=== PATIENT | female | born 1990 | race Caucasian/White ===

== ENCOUNTER 2019-09-21 15:01 | Emergency (ER) | payer MEDICAID, OTHER ==
[2019-09-21 16:35] VITALS: BP 121/81; PULSE 91
[2019-09-21] MEDS ORDERED: Sodium Chloride 0.9% 10 ML Syringe FLUSH PRN (17:02)
--- NOTE | 2019-09-21 17:59 | CT ---
CT abdomen and pelvis Technique: Multiple axial sections were obtained from above the kidneys inferiorly through the pubic symphysis. Intravenous and oral contrast was not utilized. Findings: Skin thickening is seen within the anterior left pelvis with slight increased density within the adjacent subcutaneous fat. Findings presumably represent cellulitis. No fluid collections of abscess are seen. Visualized lung bases show nothing acute. Low density is noted next to the ligament teres fissure which I believe is most likely incidental. Spleen appears normal. Adrenal glands show no nodule. Pancreas shows no discrete abnormality. Nonobstructing stone is noted within the left kidney measuring 4.5 mm. No ureteral calcifications are seen. No bladder calculi are seen. Adrenal glands are unremarkable. Pancreas appears normal. Surgical clips are seen from prior cholecystectomy. Aorta shows no aneurysm. No retroperitoneal adenopathy or mesenteric abnormalities are seen. Anastomotic sutures are seen off the tip of the cecum. No pelvic mass or adenopathy is seen. No free fluid or inflammatory change is appreciated. Bone window settings were reviewed which shows no acute osseous finding. Impression: 1. Skin thickening and subcutaneous density within the left side of the lower anterior pelvis most likely representing cellulitis. 2. No focal fluid collection of abscess are seen. 3. Nonobstructing stone within left kidney. 4. Low density next to the ligamentum teres fissure within the liver believed to be incidental. 5. No additional abnormality is appreciated. Diagnostic code #3 This report was dictated in MDT
[2019-09-21] MEDS ORDERED: Ketorolac 30 MG/ML SDV IVPUSH ONE (18:08)
[2019-09-21] MEDS ORDERED: Sodium Chloride 0.9% 1,000 ML IV ONE (18:08)
[2019-09-21] MEDS ORDERED: Doxycycline 100 MG Cap PO ONE (18:59)
[2019-09-21] MEDS ORDERED: Potassium Chloride 20 MEQ Tab.ER PO ONE (18:59)
--- NOTE | 2019-09-21 19:12 | EDM.PDOC ---
ED HPI GENERAL MEDICAL PROBLEM - General Chief Complaint: Skin Complaint Stated Complaint: ABSCESS ON ABDOMEN Time Seen by Provider: 09/21/19 17:00 Source of Information: Reports: Patient History Limitations: Reports: No Limitations - History of Present Illness INITIAL COMMENTS - FREE TEXT/NARRATIVE: Patient is a 28-year-old female who presents to the emergency department with complaints of an area of painful, redness, and swelling to the skin of her right lower abdomen. States she first noticed it last night, however states it could have been there for longer than that as it is over her scar and she has limited sensation in that area. She states since yesterday it has doubled in size. She has a low-grade fever 99.5 at home. Temperature in triage was 97. She has not taken any antipyretics for the medication. States she does feel slightly nauseated but has had no vomiting or chills. Patient is type I diabetic and states that she just recently got insurance. She has been trying to stretch her insulin coverage, but now has insurance. She plans on setting up primary care in the clinic this week. Left Lower Abdomen Pain Score (Numeric/FACES): 2 - Related Data Allergies Allergy/AdvReac Type Severity Reaction Status Date / Time ondansetron HCl [From Zofran] Allergy Mild Swollen Verified 09/21/19 16:35 Eyes azithromycin [From Zithromax] Allergy Hives Verified 09/21/19 16:35 cephalexin [Cephalexin] Allergy Facial Verified 09/21/19 16:35 Swelling latex Allergy Rash Verified 09/21/19 16:35 Penicillins Allergy Cannot Verified 09/21/19 16:35 Remember tramadol Allergy Vomiting Verified 09/21/19 16:35 Home Meds: Home Meds Insulin Glarg,Human.Rec.Analog [LantUS] 27 unit SQ DAILY 09/03/13 [History] Gabapentin 100 mg PO DAILY 06/07/16 [History] Insulin Aspart [NovoLOG] 0 - 20 units SUBCUT WITHMEALSANDBED 02/23/17 [History] diphenhydrAMINE HCL [Allergy Medication] 0 mg PO ASDIRECTED PRN 09/21/19 [History] Past Medical History Genitourinary History: Reports: None 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: Neurological History: Reports: None Psychiatric History: Reports: None Endocrine/Metabolic History: Reports: Diabetes, Type I Hematologic History: Reports: None Immunologic History: Reports: None Oncologic (Cancer) History: Reports: None Dermatologic History: Reports: None - Infectious Disease History Infectious Disease History: Reports: None - Past Surgical History HEENT Surgical History: Reports: Adenoidectomy, Tonsillectomy GI Surgical History: Reports: Appendectomy, Cholecystectomy Female Surgical History: Reports: Section Neurological Surgical History: Reports: None Social & Family History - Family History Family Medical History: Noncontributory - Tobacco Use Smoking Status *Q: Current Every Day Smoker Years of Tobacco use: 10 Packs/Tins Daily: 0.5 - Caffeine Use Caffeine Use: Reports: Energy Drinks - Recreational Drug Use Recreational Drug Use: No ED ROS GENERAL - Review of Systems Review Of Systems: See Below Constitutional: Reports: Fever. Denies: Chills, Weakness, Diaphoresis, Decreased Appetite HEENT: Reports: No Symptoms Respiratory: Reports: No Symptoms Cardiovascular: Reports: No Symptoms Endocrine: Reports: No Symptoms GI/Abdominal: Reports: No Symptoms : Reports: No Symptoms. Denies: Dysuria Musculoskeletal: Reports: No Symptoms Skin: Reports: Other (Painful area of swelling and erythema to right lower abdomen) Neurological: Reports: No Symptoms Psychiatric: Reports: No Symptoms Hematologic/Lymphatic: Reports: No Symptoms Immunologic: Reports: No Symptoms ED EXAM, SKIN/RASH Exam: See Below Exam Limited By: No Limitations General Appearance: Alert, WD/WN, No Apparent Distress Respiratory/Chest: No Respiratory Distress, Lungs Clear, Normal Breath Sounds, No Accessory Muscle Use, Chest Non-Tender Cardiovascular: Normal Peripheral Pulses, Regular Rate, Rhythm, No Edema, No Gallop, No JVD, No Murmur, No Rub Neurological: Alert, Oriented, CN II-XII Intact, Normal Cognition, Normal Gait, Normal Reflexes, No Motor/Sensory Deficits Psychiatric: Normal Affect, Normal Mood Skin: Warm, Dry, Normal Color, Other (15 cm x 7 cm area of redness, warmth, and induration to the right lower abdomen. There is a 0.5 cm open area that has a scant amount of drainage from it. Wound cultures were obtained from this drainage. Area has been marked.) Course - Vital Signs Last Recorded V/S: Last Vital Signs Temp 97 F 09/21/19 16:34 Pulse 91 09/21/19 16:34 Resp 16 09/21/19 16:34 BP 121/81 09/21/19 16:34 Pulse Ox 99 09/21/19 16:34 - Orders/Labs/Meds Orders: Active Orders 24 hr Category Date Time Status Peripheral IV Care [RC] . DIRECTED Care 09/21/19 17:03 Active CULTURE BLOOD [BC] Stat Lab 09/21/19 17:35 Received Sodium Chloride 0.9% [Saline Flush] Med 09/21/19 17:02 Active 10 ml FLUSH ASDIRECTED PRN Peripheral IV Insertion Adult [OM.PC] Stat Oth 09/21/19 17:02 Ordered Medication Orders Sodium Chloride (Saline Flush) 10 ml FLUSH ASDIRECTED PRN PRN Reason: Keep Vein Open Last Admin: 09/21/19 18:22 Dose: 10 ml Documented by: JEROME Labs: Laboratory Tests 09/21/19 09/21/19 09/21/19 Range/Units 17:35 17:35 17:35 WBC 11.58 H (3.98-10.04) K/mm3 RBC 4.44 (3.98-5.22) M/mm3 Hgb 13.6 (11.2-15.7) gm/dl Hct 40.3 (34.1-44.9) % MCV 90.8 (79.4-94.8) fl MCH 30.6 (25.6-32.2) pg MCHC 33.7 (32.2-35.5) g/dl RDW Std Deviation 39.7 (36.4-46.3) fL Plt Count 235 (182-369) K/mm3 MPV 11.6 (9.4-12.3) fl Neut % (Auto) 68.2 (34.0-71.1) % Lymph % (Auto) 23.7 (19.3-51.7) % [place] % (Auto) 6.4 (4.7-12.5) % Eos % (Auto) 1.3 (0.7-5.8) Baso % (Auto) 0.3 (0.1-1.2) % Neut # (Auto) 7.89 H (1.56-6.13) K/mm3 Lymph # (Auto) 2.75 (1.18-3.74) K/mm3 [place] # (Auto) 0.74 H (0.24-0.36) K/mm3 Eos # (Auto) 0.15 (0.04-0.36) K/mm3 Baso # (Auto) 0.04 (0.01-0.08) K/mm3 Manual Slide Review Normal smear Sodium 140 (136-145) mEq/L Potassium 3.2 L (3.5-5.1) mEq/L Chloride 104 (98-107) mEq/L Carbon Dioxide 22 (21-32) mEq/L Anion Gap 17.2 H (5-15) BUN 7 (7-18) mg/dL Creatinine 0.7 (0.55-1.02) mg/dL Est Cr Clr Drug Dosing TNP Estimated GFR (MDRD) > 60 (>60) mL/min BUN/Creatinine Ratio 10.0 L (14-18) Glucose 349 H (74-106) mg/dL Lactic Acid 1.2 (0.4-2.0) mmol/L Calcium 8.4 L (8.5-10.1) mg/dL Total Bilirubin 0.9 (0.2-1.0) mg/dL AST 12 L (15-37) U/L ALT 20 (14-59) U/L Alkaline Phosphatase 116 (46-116) U/L C-Reactive Protein 4.6 H* (<1.0) mg/dL Total Protein 6.6 (6.4-8.2) g/dl Albumin 3.3 L (3.4-5.0) g/dl Globulin 3.3 gm/dL Albumin/Globulin Ratio 1.0 (1-2) Meds: Medications Generic Name Dose Route Start Last Admin Trade Name Freq PRN Reason Stop Dose Admin Sodium Chloride 10 ml 09/21/19 17:02 09/21/19 18:22 Saline Flush FLUSH 10 ml ASDIRECTED PRN Administration Keep Vein Open Discontinued Medications Generic Name Dose Route Start Last Admin Trade Name Freq PRN Reason Stop Dose Admin Doxycycline Hyclate 200 mg 09/21/19 18:59 Vibramycin PO 09/21/19 19:00 ONETIME ONE Sodium Chloride 1,000 mls @ 999 mls/hr 09/21/19 18:08 09/21/19 18:21 Normal Saline IV 09/21/19 19:08 999 mls/hr ONETIME ONE Administration Ketorolac Tromethamine 30 mg 09/21/19 18:08 09/21/19 18:22 Toradol IVPUSH 09/21/19 18:09 30 mg ONETIME ONE Administration Potassium Chloride 40 meq 09/21/19 18:59 Klor-Con M20 PO 09/21/19 19:00 ONETIME ONE - Re-Assessments/Exams Free Text/Narrative Re-Assessment/Exam: 09/21/19 19:20 Hematology was significant for a WBC slightly elevated at 11.58, potassium low at 3.2, anion gap slightly elevated at 17.2, glucose of 349, CRP 4.6. Lactic acid was normal at 1.2. I have ordered 40 mEq of oral KCl to replace her potassium. Patient states that she did take her home dose of insulin after her blood was drawn as she was due. We will start her on doxycycline for treatment of cellulitis. She will get a 200 mg oral dose tonight and then started on t wice daily for 10 days. I will write a short prescription of [place] for pain management. Insta med prescriptions will be given. Discussed return precautions of worsening pain and swelling, worsening fever, chills, nausea, or vomiting. Will provide her with a list of providers in the clinic to establish care for ongoing management of her diabetes and to follow-up with regards to the cellulitis as needed. Discharge instructions as documented. Departure - Departure Time of Disposition: 19:22 Disposition: Home, Self-Care 01 Condition: Good Clinical Impression: Cellulitis Qualifiers: Site of cellulitis: unspecified site Qualified Code(s): L03.90 - Cellulitis, unspecified - Discharge Information *PRESCRIPTION DRUG MONITORING PROGRAM REVIEWED*: Yes *COPY OF PRESCRIPTION DRUG MONITORING REPORT IN PATIENT SAMIRA: No Instructions: Cellulitis, Adult Referrals: PCP,None [Primary Care Provider] - Forms: ED Department Discharge Additional Instructions: You were seen in the emergency department today for an area of painful, red swelling to your lower abdomen. Your work-up included blood work, cultures, and a CT scan of your abdomen. YYour white count was minimally elevated which is an indicator of infection. Potassium was slightly low at 3.2. You did receive supplementation of this in the ER. Blood sugar was elevated at 349, however you did take your home dose of insulin while in the ER. While in the ER, you received a liter of IV fluids, as well as a dose of Toradol for pain. You have been started on doxycycline which is an antibiotic. Take this medication twice daily for 10 days as prescribed. Recommend [id number] Tylenol or ibuprofen as needed for pain. For pain not relieved by these measures, a prescription for [place] has been provided. Use this as prescribed only. Do not work or drive for 12 hours after taking this medication as it can be sedating. Recommend that you call to schedule an appointment to establish care for management of your diabetes, as well as for a follow-up on your cellulitis. You have been provided a list of providers to schedule. The number to schedule [phone]. Return to the ER as needed. Sepsis Event Note (ED) - Evaluation Sepsis Screening Result: No Definite Risk - Focused Exam Vital Signs: Vital Signs Temp Pulse Resp BP Pulse Ox 09/21/19 16:34 97 F 91 16 121/81 99 - My Orders Last 24 Hours: My Active Orders 09/21/19 17:02 Sodium Chloride 0.9% [Saline Flush] 10 ml FLUSH ASDIRECTED PRN Peripheral IV Insertion Adult [OM.PC] Stat 09/21/19 17:03 Peripheral IV Care [RC] . DIRECTED 09/21/19 17:35 CULTURE BLOOD [BC] Stat - Assessment/Plan Last 24 Hours: My Active Orders 09/21/19 17:02 Sodium Chloride 0.9% [Saline Flush] 10 ml FLUSH ASDIRECTED PRN Peripheral IV Insertion Adult [OM.PC] Stat 09/21/19 17:03 Peripheral IV Care [RC] . DIRECTED 09/21/19 17:35 CULTURE BLOOD [BC] Stat
== END 2019-09-21 19:50 | disposition home or self-care (01) ==
LOC: JD.ED 15:01
DX: L03.311 Cellulitis of abdominal wall (principal); E10.9 Type 1 diabetes mellitus without complications; F17.210 Nicotine dependence, cigarettes, uncomplicated; Z91.040 Latex allergy status; Z88.0 Allergy status to penicillin; Z88.5 Allergy status to narcotic agent; Z88.1 Allergy status to other antibiotic agents; Z88.8 Allergy status to other drugs, medicaments and biological substances; Z79.899 Other long term (current) drug therapy
CPT/HCPCS: 36415; 74176; 80053; 83605; 85025; 86140; 87040; 87070; 87077; 87186; 96374; 99283; A9270; J1885; J7030

== ENCOUNTER 2019-09-23 08:37 | Emergency (ER) | payer OTHER ==
[2019-09-23] MEDS ORDERED: Sodium Chloride 0.9% 10 ML Syringe FLUSH PRN (09:11)
[2019-09-23] MEDS ORDERED: Metoclopramide 10 MG/2 ML SDV IVPUSH ONE (09:11)
[2019-09-23] MEDS ORDERED: Sodium Chloride 0.9% 1,000 ML IV SCH (09:15)
--- NOTE | 2019-09-23 09:26 | EDM.PDOC ---
ED HPI GENERAL MEDICAL PROBLEM - General Chief Complaint: Diabetic Complaint Stated Complaint: HIGH BLOOD SUGAR Time Seen by Provider: 09/23/19 09:02 Source of Information: Reports: Patient, RN Notes Reviewed - History of Present Illness INITIAL COMMENTS - FREE TEXT/NARRATIVE: 28 yr old female comes in with nausea, concerns about blood sugar control. Insurance ran out, having trouble paying for Lantus so using short acting insulin for control. She checked her sugar multiple time last evening and during the night but does not remember what they were. Has not been vomiting. Drinking some fluids. Mouth feels dry. On abx for an abd wall infection. Left Abdomen Pain Score (Numeric/FACES): 4 - Related Data Allergies Allergy/AdvReac Type Severity Reaction Status Date / Time ondansetron HCl [From Zofran] Allergy Mild Swollen Verified 09/23/19 08:53 Eyes azithromycin [From Zithromax] Allergy Hives Verified 09/23/19 08:53 cephalexin [Cephalexin] Allergy Facial Verified 09/23/19 08:53 Swelling latex Allergy Rash Verified 09/23/19 08:53 Penicillins Allergy Cannot Verified 09/23/19 08:53 Remember tramadol Allergy Vomiting Verified 09/23/19 08:53 Home Meds: Home Meds Insulin Glarg,Human.Rec.Analog [LantUS] 27 unit SQ DAILY 09/03/13 [History] Gabapentin 100 mg PO DAILY 06/07/16 [History] Insulin Aspart [NovoLOG] 0 - 20 units SUBCUT WITHMEALSANDBED 02/23/17 [History] diphenhydrAMINE HCL [Allergy Medication] 0 mg PO ASDIRECTED PRN 09/21/19 [History] Acetaminophen/HYDROcodone [[place] 325-5 MG] 0 mg PO ASDIRECTED PRN 09/23/19 [History] Doxycycline [Vibramycin] 0 mg PO BID 09/23/19 [History] Metoclopramide HCl [Reglan] 5 mg PO Q6HR PRN #10 tablet 09/23/19 [Rx] Past Medical History Genitourinary History: Reports: 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: Musculoskeletal History: Reports: Fracture Neurological History: Reports: None Psychiatric History: Reports: None Endocrine/Metabolic History: Reports: Diabetes, Type I Hematologic History: Reports: None Immunologic History: Reports: None Oncologic (Cancer) History: Reports: None Dermatologic History: Reports: None - Infectious Disease History Infectious Disease History: Reports: Chicken Pox, Shingles - Past Surgical History HEENT Surgical History: Reports: Adenoidectomy, Tonsillectomy GI Surgical History: Reports: Appendectomy, Cholecystectomy Female Surgical History: Reports: Section Neurological Surgical History: Reports: None Social & Family History - Family History Family Medical History: Noncontributory - Tobacco Use Smoking Status *Q: Current Every Day Smoker Years of Tobacco use: 10 Packs/Tins Daily: 0.5 - Caffeine Use Caffeine Use: Reports: Coffee, Energy Drinks, Soda - Recreational Drug Use Recreational Drug Use: No ED ROS GENERAL - Review of Systems Review Of Systems: See Below Constitutional: Denies: Fever, Chills, Diaphoresis HEENT: Reports: Other (mouth is dry) Respiratory: Denies: Shortness of Breath Cardiovascular: Denies: Chest Pain GI/Abdominal: Reports: Abdominal Pain, Nausea. Denies: Diarrhea, Vomiting Musculoskeletal: Reports: No Symptoms Skin: Reports: Erythema (area of mild erythema L lower abd) Neurological: Reports: No Symptoms ED EXAM GENERAL NO PERIP PULSE - Physical Exam Exam: See Below General Appearance: Alert, No Apparent Distress Throat/Mouth: Other (oral mucosa mildly dry) Head: Atraumatic. No: Facial Swelling Neck: Supple Respiratory/Chest: No Respiratory Distress, Lungs Clear, Normal Breath Sounds Cardiovascular: Regular Rate, Rhythm GI/Abdominal: Soft, Tender (mild mid and L lower abd tenderness) Back Exam: No: CVA Tenderness (L), CVA Tenderness (R) Extremities: Normal Inspection, Normal Range of Motion Neurological: Alert, Oriented, No Motor/Sensory Deficits Skin Exam: Warm, Dry, Erythema (mild erythema L lower abd) Course - Vital Signs Last Recorded V/S: Last Vital Signs Temp 98.3 F 09/23/19 10:57 Pulse 78 09/23/19 10:57 Resp 16 09/23/19 10:57 BP 107/84 09/23/19 10:57 Pulse Ox 100 09/23/19 10:57 - Orders/Labs/Meds Labs: Laboratory Tests 09/23/19 09/23/19 09/23/19 Range/Units 08:47 09:15 09:15 WBC 8.62 (3.98-10.04) K/mm3 RBC 4.23 (3.98-5.22) M/mm3 Hgb 13.1 (11.2-15.7) gm/dl Hct 39.0 (34.1-44.9) % MCV 92.2 (79.4-94.8) fl MCH 31.0 (25.6-32.2) pg MCHC 33.6 (32.2-35.5) g/dl RDW Std Deviation 40.6 (36.4-46.3) fL Plt Count 248 (182-369) K/mm3 MPV 11.8 (9.4-12.3) fl Neut % (Auto) 63.4 (34.0-71.1) % Lymph % (Auto) 28.2 (19.3-51.7) % [place] % (Auto) 6.1 (4.7-12.5) % Eos % (Auto) 1.9 (0.7-5.8) Baso % (Auto) 0.2 (0.1-1.2) % Neut # (Auto) 5.46 (1.56-6.13) K/mm3 Lymph # (Auto) 2.43 (1.18-3.74) K/mm3 [place] # (Auto) 0.53 H (0.24-0.36) K/mm3 Eos # (Auto) 0.16 (0.04-0.36) K/mm3 Baso # (Auto) 0.02 (0.01-0.08) K/mm3 Sodium 143 (136-145) mEq/L Potassium 3.5 (3.5-5.1) mEq/L Chloride 108 H (98-107) mEq/L Carbon Dioxide 25 (21-32) mEq/L Anion Gap 13.5 (5-15) BUN 7 (7-18) mg/dL Creatinine 0.7 (0.55-1.02) mg/dL Est Cr Clr Drug Dosing 99.86 mL/min Estimated GFR (MDRD) > 60 (>60) mL/min BUN/Creatinine Ratio 10.0 L (14-18) Glucose 72 L (74-106) mg/dL POC Glucose 64 L (70-105) mg/dL Calcium 8.5 (8.5-10.1) mg/dL Total Bilirubin 0.8 (0.2-1.0) mg/dL AST 25 (15-37) U/L ALT 19 (14-59) U/L Alkaline Phosphatase 94 (46-116) U/L Total Protein 6.2 L (6.4-8.2) g/dl Albumin 3.0 L (3.4-5.0) g/dl Globulin 3.2 gm/dL Albumin/Globulin Ratio 0.9 L (1-2) /14/ Range/Units 10:35 WBC (3.98-10.04) K/mm3 RBC (3.98-5.22) M/mm3 Hgb (11.2-15.7) gm/dl Hct (34.1-44.9) % MCV (79.4-94.8) fl MCH (25.6-32.2) pg MCHC (32.2-35.5) g/dl RDW Std Deviation (36.4-46.3) fL Plt Count (182-369) K/mm3 MPV (9.4-12.3) fl Neut % (Auto) (34.0-71.1) % Lymph % (Auto) (19.3-51.7) % [place] % (Auto) (4.7-12.5) % Eos % (Auto) (0.7-5.8) Baso % (Auto) (0.1-1.2) % Neut # (Auto) (1.56-6.13) K/mm3 Lymph # (Auto) (1.18-3.74) K/mm3 [place] # (Auto) (0.24-0.36) K/mm3 Eos # (Auto) (0.04-0.36) K/mm3 Baso # (Auto) (0.01-0.08) K/mm3 Sodium (136-145) mEq/L Potassium (3.5-5.1) mEq/L Chloride (98-107) mEq/L Carbon Dioxide (21-32) mEq/L Anion Gap (5-15) BUN (7-18) mg/dL Creatinine (0.55-1.02) mg/dL Est Cr Clr Drug Dosing mL/min Estimated GFR (MDRD) (>60) mL/min BUN/Creatinine Ratio (14-18) Glucose (74-106) mg/dL POC Glucose 72 (70-105) mg/dL Calcium (8.5-10.1) mg/dL Total Bilirubin (0.2-1.0) mg/dL AST (15-37) U/L ALT (14-59) U/L Alkaline Phosphatase (46-116) U/L Total Protein (6.4-8.2) g/dl Albumin (3.4-5.0) g/dl Globulin gm/dL Albumin/Globulin Ratio (1-2) Meds: Medications Discontinued Medications Generic Name Dose Route Start Last Admin Trade Name Liang PRN Reason Stop Dose Admin Sodium Chloride 1,000 mls @ 999 mls/hr 09/23/19 09:15 09/23/19 09:22 Normal Saline IV 999 mls/hr ONETIME SHAR Administration Metoclopramide HCl 5 mg 09/23/19 09:11 09/23/19 09:20 Reglan IVPUSH 09/23/19 09:12 5 mg ONETIME ONE Administration Sodium Chloride 10 ml 09/23/19 09:11 09/23/19 09:16 Saline Flush FLUSH 10 ml ASDIRECTED PRN Administration Keep Vein Open - Re-Assessments/Exams Free Text/Narrative Re-Assessment/Exam: 09/23/19 10:44 Feeling better, 1 liter fluid and reglan really helped her. Repeat glucose 72, she wants to go home and eat, discharge instr. as documented. Departure - Departure Time of Disposition: 10:45 Disposition: Home, Self-Care 01 Condition: Fair Clinical Impression: Hypoglycemia, Nausea, Abdominal pain Cellulitis Qualifiers: Site of cellulitis: unspecified site Qualified Code(s): L03.90 - Cellulitis, unspecified - Discharge Information Prescriptions: Metoclopramide HCl [Reglan] 5 mg PO Q6HR PRN #10 tablet PRN Reason: Nausea/Vomiting Instructions: Cellulitis, Adult, [id number], Abdominal Pain, Adult, [id number], Nausea, Adult, [id number], Hypoglycemia, [id number] Referrals: PCP,None [Primary Care Provider] - Forms: ED Department Discharge, ED Return to Work/School Form Additional Instructions: reglan 5 mg q 6 to 8 hr if needed for severe nausea or vomiting. Prescription has been sent to [facility]. Continue current meds. Follow up with your regular medical provider as needed. Return to ED as needed if symptoms worsening in any way. Sepsis Event Note (ED) - Evaluation Sepsis Screening Result: No Definite Risk
[2019-09-23 11:08] VITALS: BP 107/84; PULSE 78
== END 2019-09-23 11:01 | disposition home or self-care (01) ==
LOC: JD.ED 08:37
DX: E10.649 Type 1 diabetes mellitus with hypoglycemia without coma (principal); L03.311 Cellulitis of abdominal wall; F17.210 Nicotine dependence, cigarettes, uncomplicated; Z88.0 Allergy status to penicillin; Z91.040 Latex allergy status; Z88.6 Allergy status to analgesic agent; Z88.1 Allergy status to other antibiotic agents; Z88.8 Allergy status to other drugs, medicaments and biological substances; Z79.899 Other long term (current) drug therapy
CPT/HCPCS: 36415; 80053; 82962; 85025; 96361; 96374; 99284; J2765; J7030

== ENCOUNTER 2020-01-19 16:28 | Emergency (ER) | payer OTHER ==
[2020-01-19 16:49] VITALS: BP 134/89; PULSE 92
[2020-01-19] MEDS ORDERED: Sodium Chloride 0.9% 10 ML Syringe FLUSH PRN (16:56)
[2020-01-19] MEDS ORDERED: HYDROmorphone 0.5 MG/0.5 ML Syringe IVPUSH ONE ×2 (16:58→17:44)
[2020-01-19] MEDS ORDERED: Metoclopramide 10 MG/2 ML SDV IVPUSH ONE (16:58)
[2020-01-19] MEDS ORDERED: Sodium Chloride 0.9% 1,000 ML IV ONE (17:05)
--- NOTE | 2020-01-19 17:07 | EDM.PDOC ---
<Hugh Kearns - Last Filed: 01/20/20 06:05> ED HPI GENERAL MEDICAL PROBLEM - General Chief Complaint: Flank Pain Stated Complaint: L SIDE PAIN/VOMITING Time Seen by Provider: 01/19/20 16:49 - Related Data Allergies Allergy/AdvReac Type Severity Reaction Status Date / Time ondansetron HCl [From Zofran] Allergy Mild Swollen Verified 01/19/20 16:49 Eyes azithromycin [From Zithromax] Allergy Hives Verified 01/19/20 16:49 cephalexin [Cephalexin] Allergy Facial Verified 01/19/20 16:49 Swelling latex Allergy Rash Verified 01/19/20 16:49 Penicillins Allergy Cannot Verified 01/19/20 16:49 Remember tramadol AdvReac Vomiting Verified 01/21/20 10:51 Home Meds: Home Meds Insulin Glarg,Human.Rec.Analog [LantUS] 30 unit SQ DAILY 09/03/13 [History] Insulin Aspart [NovoLOG] 0 - 20 units SUBCUT WITHMEALSANDBED 02/23/17 [History] Course - Re-Assessments/Exams Free Text/Narrative Re-Assessment/Exam: 01/20/20 03:40 Assumed care at change of shift. Was notified a short time ago that the patient's blood sugar was greater than 400. The patient usually takes 30 units of Lantus at bedtime this has been ordered I will give her 6 units of regular insulin IV. She has LR running at 150 cc an hour we will check a basic metabolic panel. 01/20/20 06:05 The patient's blood sugar is down to 298. Discussed the patient's case with Dr. Marsh neurologist he would like the patient sent over soon as possible. Discussed the blood sugar issues with him. He still wants the patient to come to the emergency room. Discussed the patient's case with , ER physician who is aware the blood sugar issues. He also requests a Covid test to be obtained, this is obtained but he request that we hurry up and send the patient and notify them of the result. The patient had active Covid and resolved several weeks ago. Departure - Departure Disposition: DC/Tfer to [facility] 02 Clinical Impression: Kidney stone on left side - Discharge Information Referrals: Felicity Peralta MD [Primary Care Provider] - Forms: ED Department Discharge <Deysi Onofre V - Last Filed: 01/22/20 11:47> ED HPI GENERAL MEDICAL PROBLEM - General Source of Information: Reports: Patient, RN Notes Reviewed History Limitations: Reports: No Limitations - History of Present Illness INITIAL COMMENTS - FREE TEXT/NARRATIVE: Patient is a 29-year-old female who presents to the ED for her left side pain. Patient notes that she developed abrupt left flank pain, roughly 1 hour prior to arrival to the ER. She is also complaining of some mild abdomen cramping slightly before this. She has had some nausea and is vomited a couple times due to this. She notes she is a type I diabetic on insulin. Patient notes she has remote history of COVID-19, she was positive roughly 3 weeks ago, but is subsequently off quarantine. She states that the pain was a very sharp stabbing pain and she has never felt pain like this before ever. She has not had any fever or chills, cough or shortness of breath. She further denies any blood in her urine, urinary discomfort, frequency or urgency. She notes that her blood sugars have been somewhat erratic but controllable with insulin. She is not complaining of any vaginal bleeding, or any discharge however she states her last menstrual period was on December 25, she has been having unprotected sex after this, so she thinks that there is a possibility she could be at this time. 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: Musculoskeletal History: Reports: Fracture Endocrine/Metabolic History: Reports: Diabetes, Type I - Infectious Disease History Infectious Disease History: Reports: Novel Coronavirus (mid december 2019) - Past Surgical History HEENT Surgical History: Reports: Adenoidectomy, Tonsillectomy GI Surgical History: Reports: Appendectomy, Cholecystectomy Female Surgical History: Reports: Section Social & Family History - Family History Family Medical History: No Pertinent Family History - Tobacco Use Tobacco Use Status *Q: Current Every Day Tobacco User Years of Tobacco use: 10 Packs/Tins Daily: 1 - Caffeine Use Caffeine Use: Reports: Coffee, Energy Drinks, Soda ED ROS GENERAL - Review of Systems Review Of Systems: Comprehensive ROS is negative, except as noted in HPI. ED EXAM, GI/ABD - Physical Exam Exam: See Below Exam Limited By: No Limitations General Appearance: Alert, WD/WN, No Apparent Distress (in no obvious respiratory distress, but does seem to be in a moderate amount of pain.) Respiratory/Chest: No Respiratory Distress, Lungs Clear, Normal Breath Sounds, No Accessory Muscle Use, Chest Non-Tender Cardiovascular: Normal Peripheral Pulses, Regular Rate, Rhythm, No Murmur GI/Abdominal Exam: Normal Bowel Sounds, Soft, Non-Tender, No Distention, No Mass (Female) Exam: Deferred Back Exam: Normal Inspection, Full Range of Motion. No: CVA Tenderness (L), CVA Tenderness (R) Extremities: Normal Inspection, Normal Capillary Refill Neurological: Alert, Oriented, Normal Cognition, No Motor/Sensory Deficits Psychiatric: Normal Affect, Normal Mood Skin Exam: Warm, Dry, Intact, Normal Color, No Rash Course - Vital Signs Last Recorded V/S: Last Vital Signs Temp 98.5 F 01/19/20 16:46 Pulse 92 01/19/20 16:46 Resp 18 01/19/20 16:46 BP 134/89 01/19/20 16:46 Pulse Ox 99 01/19/20 16:46 - Orders/Labs/Meds Labs: Laboratory Tests 01/19/20 01/19/20 01/19/20 Range/Units 17:01 17:01 17:01 WBC 10.92 H (3.98-10.04) K/mm3 RBC 4.74 (3.98-5.22) M/mm3 Hgb 14.9 D (11.2-15.7) gm/dl Hct 44.7 (34.1-44.9) % MCV 94.3 (79.4-94.8) fl MCH 31.4 (25.6-32.2) pg MCHC 33.3 (32.2-35.5) g/dl RDW Std Deviation 41.1 (36.4-46.3) fL Plt Count 216 (182-369) K/mm3 MPV 11.6 (9.4-12.3) fl Neut % (Auto) 71.1 (34.0-71.1) % Lymph % (Auto) 24.2 (19.3-51.7) % Hill % (Auto) 3.2 L (4.7-12.5) % Eos % (Auto) 1.1 (0.7-5.8) Baso % (Auto) 0.3 (0.1-1.2) % Neut # (Auto) 7.77 H (1.56-6.13) K/mm3 Lymph # (Auto) 2.64 (1.18-3.74) K/mm3 Hill # (Auto) 0.35 (0.24-0.36) K/mm3 Eos # (Auto) 0.12 (0.04-0.36) K/mm3 Baso # (Auto) 0.03 (0.01-0.08) K/mm3 Manual Slide Review Normal smear Sodium 137 (136-145) mEq/L Potassium 3.7 (3.5-5.1) mEq/L Chloride 102 (98-107) mEq/L Carbon Dioxide 22 (21-32) mEq/L Anion Gap 16.7 H (5-15) BUN 15 (7-18) mg/dL Creatinine 0.8 (0.55-1.02) mg/dL Est Cr Clr Drug Dosing 86.60 mL/min Estimated GFR (MDRD) > 60 (>60) mL/min BUN/Creatinine Ratio 18.8 H (14-18) Glucose 177 H (74-106) mg/dL POC Glucose (70-105) mg/dL Calcium 8.7 (8.5-10.1) mg/dL Total Bilirubin 1.3 H (0.2-1.0) mg/dL AST 20 (15-37) U/L ALT 35 (14-59) U/L Alkaline Phosphatase 82 (46-116) U/L Total Protein 7.4 (6.4-8.2) g/dl Albumin 3.9 (3.4-5.0) g/dl Globulin 3.5 gm/dL Albumin/Globulin Ratio 1.1 (1-2) HCG, Qual Negative (NEGATIVE) Urine Color (Yellow) Urine Appearance (Clear) Urine pH (5.0-8.0) Ur Specific [place] (1.005-1.030) Urine Protein (Negative) Urine Glucose (UA) (Negative) Urine Ketones (Negative) Urine Occult Blood (Negative) Urine Nitrite (Negative) Urine Bilirubin (Negative) Urine Urobilinogen (0.2-1.0) Ur Leukocyte Esterase (Negative) Urine RBC (0-5) /hpf Urine WBC (0-5) /hpf Ur Squamous Epith Cells (0-5) /hpf Urine Bacteria (FEW) /hpf Urine Mucus (FEW) /hpf Ketones (0.0-0.3) mM SARS-CoV-2 RNA (JALEESA) (NEGATIVE) 01/19/20 01/19/20 01/20/20 Range/Units 19:15 20:21 04:14 WBC (3.98-10.04) K/mm3 RBC (3.98-5.22) M/mm3 Hgb (11.2-15.7) gm/dl Hct (34.1-44.9) % MCV (79.4-94.8) fl MCH (25.6-32.2) pg MCHC (32.2-35.5) g/dl RDW Std Deviation (36.4-46.3) fL Plt Count (182-369) K/mm3 MPV (9.4-12.3) fl Neut % (Auto) (34.0-71.1) % Lymph % (Auto) (19.3-51.7) % Hill % (Auto) (4.7-12.5) % Eos % (Auto) (0.7-5.8) Baso % (Auto) (0.1-1.2) % Neut # (Auto) (1.56-6.13) K/mm3 Lymph # (Auto) (1.18-3.74) K/mm3 Hill # (Auto) (0.24-0.36) K/mm3 Eos # (Auto) (0.04-0.36) K/mm3 Baso # (Auto) (0.01-0.08) K/mm3 Manual Slide Review Sodium (136-145) mEq/L Potassium (3.5-5.1) mEq/L Chloride (98-107) mEq/L Carbon Dioxide (21-32) mEq/L Anion Gap (5-15) BUN (7-18) mg/dL Creatinine (0.55-1.02) mg/dL Est Cr Clr Drug Dosing mL/min Estimated GFR (MDRD) (>60) mL/min BUN/Creatinine Ratio (14-18) Glucose (74-106) mg/dL POC Glucose 184 H (70-105) mg/dL Calcium (8.5-10.1) mg/dL Total Bilirubin (0.2-1.0) mg/dL AST (15-37) U/L ALT (14-59) U/L Alkaline Phosphatase (46-116) U/L Total Protein (6.4-8.2) g/dl Albumin (3.4-5.0) g/dl Globulin gm/dL Albumin/Globulin Ratio (1-2) HCG, Qual (NEGATIVE) Urine Color Yellow (Yellow) Urine Appearance Cloudy H (Clear) Urine pH 6.0 (5.0-8.0) Ur Specific [place] > or = 1.030 (1.005-1.030) Urine Protein 2+ H (Negative) Urine Glucose (UA) Negative (Negative) Urine Ketones 1+ H (Negative) Urine Occult Blood 2+ H (Negative) Urine Nitrite Positive H (Negative) Urine Bilirubin Negative (Negative) Urine Urobilinogen 0.2 (0.2-1.0) Ur Leukocyte Esterase 1+ H (Negative) Urine RBC 20-30 H (0-5) /hpf Urine WBC 50-75 H (0-5) /hpf Ur Squamous Epith Cells 5-10 H (0-5) /hpf Urine Bacteria Many H (FEW) /hpf Urine Mucus Few (FEW) /hpf Ketones 1.42 (0.0-0.3) mM SARS-CoV-2 RNA (JALEESA) (NEGATIVE) 01/20/20 01/20/20 01/20/20 Range/Units 04:15 05:30 05:55 WBC (3.98-10.04) K/mm3 RBC (3.98-5.22) M/mm3 Hgb (11.2-15.7) gm/dl Hct (34.1-44.9) % MCV (79.4-94.8) fl MCH (25.6-32.2) pg MCHC (32.2-35.5) g/dl RDW Std Deviation (36.4-46.3) fL Plt Count (182-369) K/mm3 MPV (9.4-12.3) fl Neut % (Auto) (34.0-71.1) % Lymph % (Auto) (19.3-51.7) % Hill % (Auto) (4.7-12.5) % Eos % (Auto) (0.7-5.8) Baso % (Auto) (0.1-1.2) % Neut # (Auto) (1.56-6.13) K/mm3 Lymph # (Auto) (1.18-3.74) K/mm3 Hill # (Auto) (0.24-0.36) K/mm3 Eos # (Auto) (0.04-0.36) K/mm3 Baso # (Auto) (0.01-0.08) K/mm3 Manual Slide Review Sodium 133 L (136-145) mEq/L Potassium 4.5 (3.5-5.1) mEq/L Chloride 100 (98-107) mEq/L Carbon Dioxide 20 L (21-32) mEq/L Anion Gap 17.5 H (5-15) BUN 19 H (7-18) mg/dL Creatinine 1.0 (0.55-1.02) mg/dL Est Cr Clr Drug Dosing 69.28 mL/min Estimated GFR (MDRD) > 60 (>60) mL/min BUN/Creatinine Ratio 19.0 H (14-18) Glucose 508 H* (74-106) mg/dL POC Glucose 296 H (70-105) mg/dL Calcium 8.1 L (8.5-10.1) mg/dL Total Bilirubin (0.2-1.0) mg/dL AST (15-37) U/L ALT (14-59) U/L Alkaline Phosphatase (46-116) U/L Total Protein (6.4-8.2) g/dl Albumin (3.4-5.0) g/dl Globulin gm/dL Albumin/Globulin Ratio (1-2) HCG, Qual (NEGATIVE) Urine Color (Yellow) Urine Appearance (Clear) Urine pH (5.0-8.0) Ur Specific [place] (1.005-1.030) Urine Protein (Negative) Urine Glucose (UA) (Negative) Urine Ketones (Negative) Urine Occult Blood (Negative) Urine Nitrite (Negative) Urine Bilirubin (Negative) Urine Urobilinogen (0.2-1.0) Ur Leukocyte Esterase (Negative) Urine RBC (0-5) /hpf Urine WBC (0-5) /hpf Ur Squamous Epith Cells (0-5) /hpf Urine Bacteria (FEW) /hpf Urine Mucus (FEW) /hpf Ketones (0.0-0.3) mM SARS-CoV-2 RNA (JALEESA) Positive H (NEGATIVE) Meds: Medications Discontinued Medications Generic Name Dose Route Start Last Admin Trade Name Liang PRN Reason Stop Dose Admin Hydromorphone HCl 0.5 mg 01/19/20 16:58 01/19/20 17:12 Dilaudid IVPUSH 01/19/20 16:59 0.5 mg ONETIME ONE Administration Hydromorphone HCl 0.5 mg 01/19/20 17:44 01/19/20 18:00 Dilaudid IVPUSH 01/19/20 17:45 0.5 mg ONETIME ONE Administration Hydromorphone HCl 0.5 mg 01/20/20 05:22 01/20/20 05:27 Dilaudid IVPUSH 01/20/20 05:23 0.5 mg ONETIME ONE Administration Sodium Chloride 1,000 mls @ 999 mls/hr 01/19/20 17:05 01/19/20 17:13 Normal Saline IV 01/19/20 18:05 999 mls/hr ONETIME ONE Administration Promethazine HCl 25 mg/ Sodium 51 mls @ 100 mls/hr 01/19/20 17:44 01/19/20 18:00 Chloride IV 01/19/20 18:14 100 mls/hr ONETIME ONE Administration Levofloxacin/Dextrose 750 mg/ 150 mls @ 100 mls/hr 01/19/20 19:30 01/19/20 19:42 Premix IV 01/19/20 20:59 100 mls/hr ONETIME ONE Administration Lactated Ringer's 1,000 mls @ 500 mls/hr 01/19/20 20:00 01/19/20 21:20 Ringers, Lactated IV 500 mls/hr ASDIRECTED SHAR Administration Lactated Ringer's 1,000 mls @ 150 mls/hr 01/19/20 23:30 01/20/20 00:57 Ringers, Lactated IV 150 mls/hr ASDIRECTED SHAR Administration Sodium Chloride 1,000 mls @ 150 mls/hr 01/20/20 05:00 Normal Saline IV ASDIRECTED SHAR Insulin Glargine 30 unit 01/20/20 03:31 01/20/20 03:49 Lantus SUBCUT 01/20/20 03:32 30 unit ONETIME ONE Administration Insulin Human Regular 6 unit 01/20/20 03:35 01/20/20 03:49 Humulin R IV 01/20/20 03:36 6 unit ONETIME ONE Administration Ketorolac Tromethamine 30 mg 01/19/20 19:14 01/19/20 19:18 Toradol IVPUSH 01/19/20 19:15 30 mg ONETIME ONE Administration Metoclopramide HCl 10 mg 01/19/20 16:58 01/19/20 17:12 Reglan IVPUSH 01/19/20 16:59 10 mg ONETIME ONE Administration Sodium Chloride 10 ml 01/19/20 16:56 01/19/20 17:13 Saline Flush FLUSH 10 ml ASDIRECTED PRN Administration Keep Vein Open - Re-Assessments/Exams Free Text/Narrative Re-Assessment/Exam: 01/19/20 17:06 Patient presents to the ED for the evaluation of her left flank pain. Have ordered some blood work, IV to be placed with some IV fluids, pain meds and nausea meds to start out with. We will rule out first as a cause of some of her pain and then entertain imaging after that. 01/19/20 19:10 Labs are fairly unremarkable, is negative. She did have a CT scan performed and this demonstrated a 8 mm stone within the upstream left ureter. There is moderate left hydronephrosis associated with this. We are still awaiting urinalysis at this time. 01/19/20 20:13 The patient's urinalysis is grossly positive for UTI as well. I have been in contact with Dr. Marsh at [facility] in [place], unfortunately they do not have beds for tonight's purposes. He would highly recommend that she stay somewhere for observation with IV antibiotics and fluids, and then get transferred to their facility in the morning for urological stent placement. He states he would be able to do this in the morning. They would like us to call back at 6 AM to try to arrange transfer at that time. Plan is to have the patient stay with us overnight, give her IV fluids her first dose of IV Levaquin, and then transfer her in the morning. Departure - Departure Time of Disposition: 19:18 Condition: Good - Discharge Information *PRESCRIPTION DRUG MONITORING PROGRAM REVIEWED*: No *COPY OF PRESCRIPTION DRUG MONITORING REPORT IN PATIENT SAMIRA: No Sepsis Event Note (ED) - Evaluation Sepsis Screening Result: No Definite Risk
[2020-01-19] MEDS ORDERED: Promethazine 25 MG in Sodium Chloride 0.9% 50 ML IV ONE (17:44)
[2020-01-19] MEDS ORDERED: Ketorolac 30 MG/ML SDV IVPUSH ONE (19:14)
[2020-01-19] MEDS ORDERED: Levofloxacin/Dextrose 5%-Water 750 MG in Premix Bag 1 BAG IV ONE (19:30)
[2020-01-19] MEDS ORDERED: Lactated Ringers 1,000 ML IV SCH ×2 (20:00→23:30)
[2020-01-20] MEDS ORDERED: Insulin Glarg,Human.Rec.Analog 100 Unit/ML SUBCUT ONE (03:31)
[2020-01-20] MEDS ORDERED: Insulin Regular, Human 100 Units/ML 3 ML Vial IV ONE (03:35)
[2020-01-20] MEDS ORDERED: Sodium Chloride 0.9% 1,000 ML IV SCH (05:00)
[2020-01-20] MEDS ORDERED: HYDROmorphone 0.5 MG/0.5 ML Syringe IVPUSH ONE (05:22)
--- NOTE | 2020-01-20 10:38 | CT ---
"Addendum created by Hugh Garcia MD on 01/19/2020 7:50 PM Central Time ([place] & [place]): ADDENDUM: The report from the previous study is not available. Initial Report created on 01/19/2020 7:49 PM Central Time ([place] & [place]): PROCEDURE INFORMATION: Exam: CT Abdomen And Pelvis Without Contrast Exam date and time: 01/19/2020 6:18 PM Age: 29 years old Clinical indication: Abdominal pain; Flank; Left TECHNIQUE: Imaging protocol: Computed tomography of the abdomen and pelvis without contrast. COMPARISON: CT Abdomen Pelvis wo Cont 09/21/2019 5:34 PM FINDINGS: Lungs: The visualized portions of the lung bases are normal. Liver: The liver appears normal for a noncontrast study. Gallbladder and bile ducts: The patient is post cholecystectomy. Pancreas: The pancreas is normal. Spleen: The spleen is normal. Adrenal glands: Normal. No mass. Kidneys and ureters: An 8 mm calculus lies in the upstream left ureter. There is moderate left hydronephrosis. The right kidney is morphologically normal, has appropriate cortical thickness, and is free of hydronephrosis. Stomach and bowel: The GI tract has normal course, caliber and morphology. Scattered diverticuli are present in the left colon. Appendix: There has been an appendectomy. MIESHA ANDRADE | Final Radiology Report CONFIDENTIALITY STATEMENT This report is intended only for use by the referring physician, and only in accordance with law. If you received this in error, call [phone]. Page 2 of 2 Intraperitoneal space: There is no evidence of intraperitoneal / pathologic air collections. There is minimal free intrapelvic fluid. Vasculature: The abdominal aorta, IVC, and their branches are unremarkable. Lymph nodes: There is no evidence of lymphadenopathy. Urinary bladder: The bladder is normal. Reproductive: The uterus is normal. Bones/joints: The spine, sacroiliac joints, and hip joints are normal. Soft tissues: Unremarkable. IMPRESSION: 1. Upstream left ureterolithiasis with hydroureter and hydronephrosis. Thank you for allowing us to participate in the care of your patient. Dictated and Authenticated by: Hugh Garcia MD 01/19/2020 7:49 PM Central Time ([place] & [place]) [facility]"
== END 2020-01-20 06:00 ==
LOC: JD.ED 16:28
DX: N13.2 Hydronephrosis with renal and ureteral calculous obstruction (principal); U07.1 COVID-19; E10.9 Type 1 diabetes mellitus without complications; F17.210 Nicotine dependence, cigarettes, uncomplicated; Z88.8 Allergy status to other drugs, medicaments and biological substances; Z88.1 Allergy status to other antibiotic agents; Z91.040 Latex allergy status; Z88.0 Allergy status to penicillin; Z88.5 Allergy status to narcotic agent
CPT/HCPCS: 36415; 74176; 80048; 80053; 81001; 82009; 82962; 84703; 85025; 87086; 87088; 87184; 87186; 87635; 96365; 96366; 96367; 96375; 96376; 99285; J1170; J1815; J1885; J1956; J2550; J2765; J7030; J7120; 99284; U0002

== ENCOUNTER 2020-07-10 05:50 | Emergency (ER) | payer SELFPAY ==
--- NOTE | 2020-07-10 05:54 | EDM.PDOC ---
ED HPI GENERAL MEDICAL PROBLEM - General Chief Complaint: General Stated Complaint: MEDICAL CLEARANCE Time Seen by Provider: 07/10/20 05:54 - History of Present Illness INITIAL COMMENTS - FREE TEXT/NARRATIVE: 29-year-old female presents the emergency room for medical clearance to go to [facility]. At this time the patient refuses to answer questions and she refuses exam or further evaluation. - Related Data Allergies Allergy/AdvReac Type Severity Reaction Status Date / Time ondansetron HCl [From Zofran] Allergy Mild Swollen Verified 07/10/20 05:54 Eyes azithromycin [From Zithromax] Allergy Hives Verified 07/10/20 05:54 cephalexin [Cephalexin] Allergy Facial Verified 07/10/20 05:54 Swelling latex Allergy Rash Verified 07/10/20 05:54 Penicillins Allergy Cannot Verified 07/10/20 05:54 Remember tramadol AdvReac Vomiting Verified 07/10/20 05:54 Home Meds: Home Meds Insulin Glarg,Human.Rec.Analog [LantUS] 30 unit SQ DAILY 09/03/13 [History] Insulin Aspart [NovoLOG] 0 - 20 units SUBCUT WITHMEALSANDBED 02/23/17 [History] Past Medical History Genitourinary History: Reports: None 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: Musculoskeletal History: Reports: Fracture Neurological History: Reports: None Psychiatric History: Reports: None Endocrine/Metabolic History: Reports: Diabetes, Type I Hematologic History: Reports: None Immunologic History: Reports: None Oncologic (Cancer) History: Reports: None Dermatologic History: Reports: None - Infectious Disease History Infectious Disease History: Reports: Novel Coronavirus (mid december 2019) - Past Surgical History HEENT Surgical History: Reports: Adenoidectomy, Tonsillectomy GI Surgical History: Reports: Appendectomy, Cholecystectomy Female Surgical History: Reports: Section Social & Family History - Family History Family Medical History: No Pertinent Family History - Caffeine Use Caffeine Use: Reports: Coffee, Energy Drinks, Soda ED ROS GENERAL - Review of Systems Review Of Systems: See Below Reason Not Obtained: Patient is uncooperative and refuses to answer questions ED EXAM, GENERAL - Physical Exam Exam: See Below Free Text/Narrative:: Patient refuses exam Departure - Departure Time of Disposition: 05:57 Disposition: DC/Tfer to Court [facility] Enf 21 Clinical Impression: Medical clearance for incarceration - Discharge Information Forms: ED Department Discharge Additional Instructions: The patient is not cooperating and may go to [facility]. Return to the emergency room with any questions or problems.
== END 2020-07-10 06:13 ==
LOC: JD.ED 05:50
DX: Z53.21 Procedure and treatment not carried out due to patient leaving prior to being seen by health care provider